=== PATIENT | male | born 1950 | race Caucasian/White ===

== ENCOUNTER → 2024-02-12 13:30 | Outpatient (CLI) | payer MEDICARE, MEDICAID, SELFPAY ==
--- NOTE | 2024-02-12 12:45 | DI.US_ITS ---
Exam(s) US UPPER EXTREMITY VENOUS RT EXAM: US UPPER EXTREMITY VENOUS RT CLINICAL HISTORY: recent IV right arm, swelling and pain r/o DVT, M79.89. TECHNIQUE: Ultrasound examination of the right upper extremity venous system(s) is performed using g rayscale, color-flow, and spectral Doppler analysis. COMPARISON: No exams were available for comparison FINDINGS: The right internal jugular, axillary, subclavian, cephalic, basilic, brachial, radial, and ulnar vein s are patent without evidence of thrombosis. IMPRESSION: No DVT. DATA REPOSITORY:
== END ==
PROVIDERS: PCP Nurse Practitioner Primary Care; Visit Provider Physician Assistant
DX: M79.601 Pain in right arm (principal); R22.31 Localized swelling, mass and lump, right upper limb; M79.89 Other specified soft tissue disorders
CPT/HCPCS: 93971

== ENCOUNTER 2024-10-17 01:25 | Outpatient (CLI) | payer MEDICARE, MEDICAID, SELFPAY ==
--- NOTE | 2024-10-17 | DI.US_ITS ---
Exam(s) US CAROTID EXAM: US CAROTID CLINICAL HISTORY: SENSE OF CAROTID SWELLING, PULSATILE TINNITUS RT EAR,CAROTID ARTERY ANEURYS. TECHNIQUE: Ultrasound carotids performed using grayscale, color-flow, and spectral Doppler imaging. COMPARISON: There are no priors for comparison. FINDINGS: RIGHT CAROTID ARTERY: Plaque: None identified sonographically. Velocity elevation: None. LEFT CAROTID ARTERY: Plaque: None identified sonographically. Velocity elevation: None. VERTEBRAL ARTERIES: Antegrade flow. Measurements: R Bulb: 95.7cm/s PS / 20.3cm/s ED R CCA: 98.3cm/s PS / 16.7cm/s ED R ECA: 71.7cm/s PS / 12.7cm/s ED R ICA Prox: 94.4cm/s PS / 31cm/s ED R ICA Mid: 81.1cm/s PS / 29.3cm/s ED R ICA Distal: 88.9cm/s PS /34.5cm/s ED R Vert: 39.7cm/s PS / 8cm/s ED R SVR: 1 R DVR: 1.2 L Bulb: 78cm/s PS / 16.6cm/s ED L CCA: 66.7cm/s PS / 15.3cm/s ED L ECA: 75.7cm/s PS / 19.2cm/s ED L ICA Prox: 92.6cm/s PS / 31.4cm/s ED L ICA Mid: 81.6cm/s PS / 37.5cm/s ED L ICA Distal: 70.9cm/s PS / 28.5cm/s ED L Vert: 44.1cm/s PS / 11.9cm/s ED L SVR: 1.4 L DVR: 2 IMPRESSION: No evidence for hemodynamically significant carotid stenosis. Criteria for Carotid Stenosis: Normal: ICA PSV <125 cm/s no plaque or intimal thickening is visible. <50% stenosis: ICA PSV <125 cm/s and plaque or intimal thickening is visible. 50-69% stenosis: ICA PSV is 125-250 cm/s and plaque is visible. >70% stenosis to near occlusion: ICA PSV >250 cm/s with visible plaque and luminal narrowing. DATA REPOSITORY:
--- NOTE | 2024-10-17 10:00 | DI.US_ITS ---
APPROVED REPORT EXAM: Comprehensive 2D, Doppler, and color-flow Echocardiogram Patient Location: Out-Patient Financial Aid Counselor: Elio Rees RDCS (AE) Indications: Impaired exercise tolerance Other Information Study Quality: Adequate Conclusion Normal left ventricular wall thickness and chamber size. Ejection fraction is 40%. There is global hypokinesis Normal right ventricular size and function Moderately dilated left atrium. Normal right atrial size Trileaflet aortic valve without stenosis or regurgitation Mildly thickened mitral leaflets. There is moderate eccentric mitral regurgitation Normal tricuspid valve with mild to moderate regurgitation. Estimated right ventricular systolic pre ssure is 55 mmHg Ascending aorta measures 3.5 cm Wall motion Left Ventricle The left ventricle is normal size. Left ventricular systolic function is decreased. There is normal l eft ventricular wall thickness. There is global hypokinesis of the left ventricle. There is no ventri cular septal defect visualized. LVEF is 40%. Right Ventricle The right ventricle is normal size. The right ventricular systolic function is normal. Atria Left atrium is moderately dilated. The right atrium size is normal. The interatrial septum is intact with no evidence for an atrial septal defect. Aortic Valve The aortic valve is normal in structure. Aortic valve is trileaflet. There is no aortic valvular sten osis. No aortic regurgitation is present. Mitral Valve Mitral valve leaflets are mildly thickened. No evidence of mitral valve stenosis. Moderate eccentric mitral regurgitation. Tricuspid Valve The tricuspid valve is normal in structure. There is no tricuspid valve stenosis. Mild to moderate tr icuspid regurgitation. The RVSP is 55.3 mmHg. Pulmonic Valve The pulmonary valve is normal in structure. There is no pulmonic valvular stenosis. There is no pulmo eduardo valvular regurgitation. Great Vessels The aortic root is normal in size. The ascending aorta is mildly dilated. Aortic arch is normal in ca liber. IVC is normal in size and collapses >50% with inspiration. Pericardium There is no pericardial effusion. 2D Dimensions IVSD d PLAX 0.85 cm M: 0.6-1.2 Ao Root d 3.09 cm M: 3.1 - 3.7 LVPW d PLAX 0.88 cm M: 0.6 - 1.2 Ao Asc Diam d 3.50 cm M: 2.6 - 3.4 LVID d PLAX 5.73 cm M: 4.2 - 5.8 IVC Diam exp d SLAX 2.0 cm LVDs 4.76 cm M: 2.5 - 4.0 LV EF Teichholz 35.0 % FS 16.98 % LV EDV (Teich) 161.8 mL LV ESV (Teich) 105.2 mL Stroke Vol Index (Teich) 30.61 M-Mode TAPSE 2.65 cm (M/F) >1.7 Auto EF LV EDV A4C 118.5 mL LV EDV A2C 120.8 mL LV EDV BP 120.8 mL LV ESV A4C 70.9 mL LV ESV A2C 75.3 mL LV ESV BP 72.6 mL LVEF(%) A4C 40.1 % LVEF(%) A2C 37.7 % LVEF(%) BP 39.9 % LV SV A4C 47.6 ml LV SV A2C 45.5 ml LV SV BP 48.2 ml LV CO A4C 3.3 L/min LV CO A2C 3.2 L/min LV CO BP 3.3 L/min HR A4C 70.32 BPM HR A2C 70.59 BPM LV EDV Index (BP) LA Volume LA Length A4C 4.8 cm LA Length A2C 5.4 cm LA Area A4C s 18.62 cm2 LA Area A2C s 21.26 cm2 LA Vol A4C A-L 61.84 mL LA Vol A2C A-L 70.98 mL LA Vol Biplane A-L 70.6 mL LA Vol/BSA A4C A-L LA Vol/BSA A2C A-L LA Vol/BSA BP A-L 38.2 mL/m2 LA Vol A4C MOD 56.5 mL LA Vol A2C MOD 68.5 mL LA Vol BP MOD 65.9 mL RA Volume RA Area A4C 7.4 cm2 RA ESV A4C (A-L) 14.1mL RA Vol/BSA A4C A-L RA Length A4C 3.3 cm RA ESV A4C (MOD) 12.8mL LV Diastology MV E' medial 0.041 (>0.07 m/s) MV E Vmax 0.78 (0.4-1.3 m/s) MV E/E' MED 18.93 (<14) MV E' lateral 0.085 (>0.1 m/s) MV E/E' LAT 9.21 (<14) MV E' Average 0.063 m/s MV E/E'(average) 12.39 Aortic Valve AoV Vmax 1.35 m/s LVOT Vmax 0.56 m/s AoV Peak Grad 7.3 mmHg LVOT Peak Grad 1.2 mmHg AoV Area (Vmax) 1.61 cm2 LVOT VTI 0.105 m AoV VTI 0.294 m LVOT Mean Grad 0.8 mmHg AoV Mean Gibson. 0.95 m/s LVOT SV 40.88 mL AoV Mean Grad 4.1 mmHg LVOT Diam s 2.20 cm AoV Area (VTI) 1.39 cm2 AV Regurg Peak Gr. 7.33 mmHg Velocity Ratio 0.41 Mitral Valve MV DT 112 (160-240 msec) MR Vmax 5.17 m/s MV Vmax TIPS 0.92 m/s MR VTI 1.722 m MV Mean Grad 1.3 (<2mmHg) MR Peak Grad 107.0 mmHg MV VTI 0.210 m MR Mean Grad 69.8 mmHg MR PISA Radius 0.52 cm MR Aliasing Velocity 0.30 m/s Pulmonary Valve PV Vmax 0.79 (0.5-1.5 m/s) RVOT Vmax 0.70 m/s PV Peak Grad 2.5 mmHg RVOT Peak Gr. 1.9 mmHg PV Mean Gibson 0.60 m/s RVOT VTI 0.163 m PV Mean Grad 1.6 mmHg RVOT Mean Gr. 1.2 mmHg Tricuspid Valve RA Pressure 3.00 mmHg TR Vmax 3.61 m/s TV S' 0.12 m/s TR Peak Grad 52.2 mmHg RVSP (TR) 55.3 mmHg
== END 2024-10-17 01:45 ==
LOC: DI 01:26
PROVIDERS: PCP Nurse Practitioner Primary Care; Visit Provider Internal Medicine Cardiovascular Disease
DX: I72.0 Aneurysm of carotid artery (principal); R68.89 Other general symptoms and signs; I34.0 Nonrheumatic mitral (valve) insufficiency
CPT/HCPCS: 93306; 93880

== ENCOUNTER 2024-11-14 04:02 | Outpatient (CLI) | payer MEDICARE, MEDICAID, SELFPAY ==
[2024-11-14 11:19] LABS: Abs Immature Grans 0.02 10^3/uL (0.0-0.06); Absolute Basophil Count 0.05 10^3/uL (0.0-0.2); Absolute Eosinophil Count 0.12 10^3/uL (0.0-0.7); Absolute Lymphocyte Count 1.27 10^3/uL (1.2-3.4); Absolute Monocyte Count 0.82 10^3/uL (0.1-0.8); Absolute Neutrophil Count 5.49 10^3/uL (1.2-6.7); Basophils % 0.6 %; Eosinophils % 1.5 %; HCT 46.3 % (40.0-50.0); HGB 15.2 g/dL (13.5-17.5); Immature Grans % 0.3 %; Lymphocytes % 16.3 %; MCH 31.4 pg (27.0-33.0); MCHC 32.8 % (32.0-36.0); MCV 96 fL (80-95); MPV 10.7 fL (8.0-11.0); Monocytes % 10.6 %; Neutrophils % 70.7 %; Platelet Count 266 10^3/uL (130-400); RBC 4.84 10^6/uL (4.36-5.78); RDW 13.2 % (11.8-14.1); RDW-SD 46.9 fL; WBC 7.77 10^3/uL (4.4-10.8)
[2024-11-14 11:36] LABS: ALT 30 U/L (16-63); AST 24 U/L (15-37); Albumin 3.7 g/dL (3.4-5.0); Alkaline Phosphatase 48 U/L (46-116); Anion Gap 9.5 mmol/L (3-11); BUN 26 mg/dL (7-18); Bilirubin, Total 0.9 mg/dL (0.2-1.0); CO2 28.5 mmol/L (21.0-32.0); CREATININE 1.2 mg/dL (0.70-1.30); Chloride 104 mmol/L (98-107); Estimated GFR 63.85 (mL/min/1.73m2); Glucose 102 mg/dL (74-106); Potassium 4.1 mmol/L (3.5-5.1); Sodium 142 mmol/L (136-145); Total Protein 8.1 g/dL (6.4-8.2)
== END 2024-11-14 04:03 | disposition home or self-care (01) ==
LOC: LBO 04:03
PROVIDERS: PCP Nurse Practitioner Primary Care; Visit Provider Internal Medicine Hospice and Palliative Medicine
DX: L03.114 Cellulitis of left upper limb (principal)
CPT/HCPCS: 36415; 80053; 85025

== ENCOUNTER 2024-11-21 14:40 | Emergency (ER) | payer MEDICARE, MEDICAID, SELFPAY ==
[2024-11-21 14:42] VITALS: BP 156/91; PULSE 80; RESP 16; TEMP 36.7; O2SAT 96
--- NOTE | 2024-11-21 15:26 | ED.GENADUL_ITS ---
Discharge Plan Disposition Patient Disposition: Home Condition: Stable Discharge Details Clinical Impression: Septic olecranon bursitis of left elbow Primary Care Provider: Autumn Lutz ED Provider: Wes Childers Home Meds and New Rx's Prescriptions: New clindamycin HCl 150 mg capsule 450 mg PO TID 10 Days Qty: 90 0RF Continued metoprolol succinate 25 mg tablet extended release 24 hr 25 mg PO DAILY Eliquis 5 mg tablet 10 mg PO BID Discharge Instructions Additional Instructions: You have an olecranon bursitis that is infected. You can continue your cephalexin and also take the clindamycin. Follow-up with your primary care provider especially if is not improving within a week. If you feel significantly more ill or have new symptoms such as high fevers return to the emergency department for reevaluation HPI General Mode of arrival: ambulatory . Date/Time Provider Initiated Documentation: 11/21/24 14:43 . Limitations to Documentation: no limitations . Information obtained by: patient . History of Present Illness 74 year old M presents to the emergency department with the chief complaint of left elbow swelling, described as moderate, Quality is described as aching, Patient started experiencing this week(s) (10) and it has been constant. No relieving factors improve symptom(s), No exacerbating factors reported . Patient notes no other symptoms.. Related Data Home Medications ?Medication ?Instructions ?Recorded ?Confirmed apixaban 5 mg tablet (Eliquis) 10 mg PO BID 08/14/23 02/20/24 metoprolol succinate 25 mg 25 mg PO DAILY 08/14/23 02/20/24 tablet,extended release 24 hr clindamycin HCl 150 mg capsule 450 mg (3 x 150 mg) PO TID 10 days 11/21/24 #90 caps Previous Rx's ?Medication ?Instructions ?Recorded clindamycin HCl 150 mg capsule 450 mg (3 x 150 mg) PO TID 10 days 11/21/24 #90 caps Allergies Allergy/AdvReac Type Severity Reaction Status Date / Time No Known Allergies Allergy Verified 11/21/24 14:47 General Stated Complaint: Orthopedic PAULINO: 3 Review of Systems All systems reviewed & are unremarkable except as noted in HPI and below Constitutional Constitutional: Denies chills, Denies fever(s) and Denies weakness Respiratory Respiratory: Denies cough Gastrointestinal Gastrointestinal: Denies abdominal pain, Denies nausea and Denies vomiting Musculoskeletal Musculoskeletal: Reports joint swelling Neurologic Neurologic: Denies weakness Exam Const General: no acute distress Orientation: alert [facility] Head: normal to inspection Ears: external ears normal General nose exam: external nose normal Mouth: moist mucous membranes Eyes General: appearance normal, both eyes and all related structures Neck Neck: normal visual inspection Resp Effort & Inspection: normal respiratory effort and able to speak in complete sentences Cardio Rate: regular rate Skin General skin exam: no rashes or lesions noted and erythema Neuro General: patient alert and patient oriented x3 Extrem General: full ROM and capillary refill normal Psych Mental Status: mental status grossly normal Course Vital Signs Vital signs: Vital Signs Temperature 36.7 C 11/21/24 14:42 Pulse 80 11/21/24 14:42 Respiratory Rate 16 11/21/24 14:42 Blood Pressure 156/91 H 11/21/24 14:42 Pulse Oximetry 96 11/21/24 14:42 Temperature 36.7 C 11/21/24 14:42 Temperature Source Oral 11/21/24 14:42 Pulse 80 11/21/24 14:42 Respiratory Rate 16 11/21/24 14:42 Blood Pressure 156/91 H 11/21/24 14:42 Blood Pressure Position Sitting 11/21/24 14:42 Pulse Oximetry 96 11/21/24 14:42 Oxygen Delivery Method Room Air 11/21/24 14:42 Oxygen Flow Rate 0 11/21/24 14:42 Medical Decision Making 74-year-old male who has a prior history of squamous cell carcinoma and had left-sided radical lymphadenectomy and occasionally gets swelling in his left arm comes in with continued swelling of his left arm and was sent from PT for evaluation. He states that his provider at [facility] saw him and placed him on cephalexin 10 days ago and this starts occurring and his swelling in his arm has improved, he denies any fevers or chills. He still has swelling of the left elbow so was referred here by PT. His left olecranon bursa is swollen and mildly tender. There is mild erythema of the medial portion of the bursa. No crepitus. Is full range of motion. The elbow itself is not swollen. I suspect possibly septic bursitis. Will plan to aspirate as he has an area that does not appear to have any cellulitis overlying it. I cleaned the bursa thoroughly with chlorhexidine. I used an 18-gauge needle and aspirated 60 cc of brownish purulent material. Patient tolerated well without any complications. I am going to start him on clindamycin. He is stable for discharge and will follow-up with his PCP, return precautions given Differential Diagnosis Differential Diagnosis: Bursitis, septic bursitis, lymphedema Quality:SDOH Health Related Social Needs: No Data to Display PFSH All Active Problems (Updated 11/21/24 @ 15:59 by Wes Childers MD) Septic olecranon bursitis of left elbow (Acute) Social History Smoking/Tobacco Use Status: Never Smoking risk assessment performed?: Yes Alcohol Intake: current Alcohol Intake frequency: a few times a week Drug use: Occasionally Substance use type: marijuana and other Details: edibles or smoke Housing: other
[2024-11-21] MEDS: Cephalexin 500 MG CAP PO (15:58)
[2024-11-21] MEDS: Clindamycin 150 MG CAP 450 MG PO (16:08)
[2024-11-21 16:20] VITALS: BP 156/90; PULSE 80; RESP 16; TEMP 36.7; O2SAT 96
--- NOTE | 2024-11-24 09:00 | W.ED.FU ---
Date of service: 11/24/24 Time of Service: 09:00 Follow Up Plan: Informed by ED charge gang weigher that a culture result has returned with positive Gram positive Staph with sensitivities to various antibiotics. One being Bactrim. Patient is currently taking cephalexin and Clindamycin. Prescription sent to pharmacy on file for Bactrim DS x 10 days. 0910: Spoke at length with patient regarding the culture and sensitivity results and the new antibiotics and further evaluation and follow up care. All of his questions were answered to the best of my ability. He verbalized understanding.
--- NOTE | 2024-11-24 09:04 | NUR.NOTE ---
Nursing Note: Received call from patient regarding his microbiology report and wondering if he was on the right abx. Call was transferred to Jayna Neumann NP to discuss.
--- NOTE | 2024-11-25 08:50 | NUR.NOTE ---
Accessed Pt chart to document the antibiotics the patient was prescribed on the Specimen Report. The report was given to Dr Garcia for review.
== END 2024-11-21 16:27 | disposition home or self-care (01) ==
PROVIDERS: Emergency Provider Emergency Medicine; PCP Nurse Practitioner Primary Care
DX: M71.122 Other infective bursitis, left elbow
CPT/HCPCS: 99284; 99283; 87077; 87070; 87186; 87205